=== PATIENT | female | born 1970 | race Caucasian/White ===

== ENCOUNTER 2017-11-22 15:03 | Emergency (ER) | payer BC ==
[~2017-11-22] VITALS: Ht 165.1 cm; Wt 96.9 kg
[2017-11-22 15:13] VITALS: Ht 165.1 cm; Wt 96.9 kg
[2017-11-22] MEDS ORDERED: METHYLPREDNISOLONE 125 MG VIAL IV STA (15:51)
[2017-11-22] MEDS ORDERED: KETOROLAC TROMETHAMINE 30 MG/ML VIAL IV STA (15:51)
[2017-11-22] MEDS ORDERED: SODIUM CHLORIDE 0.9% 1000ML 1,000 ML IV STA (15:51)
[2017-11-22] MEDS ORDERED: ALBUT/IPRATROP 3MG/0.5MG NEB 3 ML VIAL INH STA (15:51)
[2017-11-22] MEDS ORDERED: BENZONATATE 100MG CAP PO ONE (16:00)
[2017-11-22 16:23] LABS: BASO % 0.2 %; BASO ABS # 0.01 K/uL (0-0.2); EOS % 3.7 %; EOS ABS # 0.18 K/uL (0-0.5); HEMATOCRIT 43.1 % (37-47); HEMOGLOBIN 14.6 g/dL (12.0-16.0); IG# 0.01 K/uL (0.00-0.02); LYMPH % 13.9 %; LYMPH ABS # 0.68 K/uL (1.2-3.4); MEAN CELL VOLUME 84.7 fL (80-100); MEAN CORPUSCULAR HEMOGLOBIN 28.7 pg (25-34); MEAN CORPUSCULAR HGB CONC 33.9 g/dl (32-36); MEAN PLATELET VOLUME 9.7 fL (7.4-10.4); MONO % 12.9 %; MONO ABS # 0.63 K/uL (0.11-0.59); NEUT % 69.1 %; NEUT ABS # 3.38 K/uL (1.4-6.5); PLATELET COUNT 147 K/uL (130-400); RED CELL DISTRIBUTION WIDTH CV 13.2 % (11.5-14.5); RED CELL DISTRIBUTION WIDTH SD 41.1 fL (36.4-46.3); WHITE BLOOD COUNT 4.89 K/uL (4.8-10.8)
[2017-11-22] MEDS ORDERED: VNTHFA/IN INH (16:30)
[2017-11-22] MEDS ORDERED: FEXO1TAB49 PO (16:30)
[2017-11-22 16:44] LABS: ALBUMIN 3.5 gm/dl (3.4-5.0); CALCIUM 8.5 mg/dl (8.5-10.1); CREATININE 0.76 mg/dl (0.60-1.20)
[2017-11-22 16:49] LABS: CKMB 2.2 ng/ml (0.5-3.6); TOTAL PROTEIN 6.8 gm/dl (6.4-8.2)
[2017-11-22 17:07] LABS: INFLUENZA B ANTIGEN Neg for Influ B (NEG)
[2017-11-22] MEDS ORDERED: OSELTAMIVIR PHOSPHATE 75 MG CAP PO STA (17:25)
[2017-11-22] MEDS ORDERED: OPTIRAY 320 IV PRN (17:30)
--- NOTE | 2017-11-22 17:30 | DIAGNOSTIC IMAGING REPORT ---
CHEST 2 VIEWS ROUTINE CLINICAL HISTORY: 47 years-old Female presenting with EVALUATE RESPIRATORY DISTRESS.DYSPNEA, cough, congestion, dyspnea, rib pain. TECHNIQUE: PA and lateral views of the chest were obtained. COMPARISON: None. FINDINGS: Cardiomediastinal silhouette normal. Lungs and pleural spaces clear. Osseous structures normal. Upper abdomen normal. IMPRESSION: 1. No acute cardiopulmonary disease. Electronically signed by: Ricardo Angulo M.D. 11/22/2017 5:29 PM Dictated Date/Time: 11/22/2017 5:28 PM
--- NOTE | 2017-11-22 18:45 | DIAGNOSTIC IMAGING REPORT ---
(CHEST FOR PE) ANGIO WITH CT DOSE: 591.65 mGy.cm HISTORY: 47 years-old Female presents with acute atypical chest pain and wheezing TECHNIQUE: Multiple CTA images of the chest were obtained after the intravenous administration of 83 ml Optiray 320. Coronal and sagittal MIPS were obtained from the axial data set and were submitted for review. A dose lowering technique was utilized adhering to the principles of ALARA. COMPARISON: Chest radiographs 11/22/2017. FINDINGS: CTA: Heart is normal in size without pericardial effusion. Thoracic aorta is normal in course and caliber without aneurysm or dissection. Imaged great vessels appear patent. There is limited visualization of the pulmonary arterial tree is very 2 respiratory motion and contrast bolus timing with the main and proximal lobar branches appearing patent. The distal lobar, segmental and subsegmental branches are not well evaluated. No central pulmonary embolus identified. CT CHEST: No dominant thyroid nodule identified. Mildly prominent and mildly enlarged lymph nodes about the chest noted including a prominent 9 mm lymph node interposed between the left subclavian and left common carotid artery. 9 mm precarinal lymph node with 1.3 x 1.8 subcarinal and 1.1 mm right hilar lymph nodes. No axillary adenopathy. No pneumothorax or pleural effusion. Respiratory motion limits evaluation of the lung bases. Mild mosaic attenuation of the left upper lobe suggests some air trapping with atelectasis. Calcific granuloma of the right lung apex. Central airways are patent with mild bilateral bronchial wall thickening. No acute process of the imaged upper abdomen. Soft tissues are unremarkable. Bones appear intact. IMPRESSION: 1. Limited evaluation of the pulmonary arterial tree secondary to contrast bolus timing and respiratory motion. No central pulmonary embolus identified. 2. Mild mediastinal and right hilar adenopathy may be reactive. 3. No lobar airspace consolidation to suggest pneumonia. 4. Mild bilateral bronchial wall thickening suggests bronchitis. The above report was generated using voice recognition software. It may contain grammatical, syntax or spelling errors. Electronically signed by: Jordan Davila M.D. 11/22/2017 6:44 PM Dictated Date/Time: 11/22/2017 6:36 PM
[2017-11-22 18:54] VITALS: TEMP 36.4
[2017-11-22] MEDS ORDERED: BENZ100C18 PO (19:00)
[2017-11-22] MEDS ORDERED: OSEL75CA12 PO (19:00)
[2017-11-22] MEDS ORDERED: PRED20TA2 PO (19:00)
[2017-11-22 19:12] VITALS: BP 126/83; PULSE 80; O2SAT 94
--- NOTE | 2017-11-22 23:26 | EMERGENCY ROOM VISIT NOTE ---
ED Visit Note First contact with patient: 15:27 Chief Complaint: Flulike symptoms. History of Present Illness: Ms. Keene is a 47-year-old white female who ambulates into the ED accompanied by her complaining of sore throat, cough, bilateral rib pain, body aches, fevers. Patient reports her symptoms started 3 days ago. She reports initially they were mild and has gradually increased in intensity. She reports her first symptoms was sore throat. Since that time her discomfort has been constant. She describes her discomfort as a deep achy sensation. She rates her discomfort 9/10. Her pain is nonradiating. Her pain worsens with swallowing. She has not identified any alleviating factors related to the pain. Then on day 2 of her illness she developed body aches, fevers, cough and rib pain. Since that time all the symptoms have been continuous. She reports she has been using Lisette-Lottie sinus medication without relief of her discomfort. Associated with these symptoms she reports she has been having some mild thoracic back pain and a headache with lightheadedness and yesterday she had one episode of watery stools. Additionally through this time she reports she had flown on the plane and felt she might have caught her symptoms there. And reports that she has been having intermittent palpitations and occasional wheezing. She denies skin eruptions, skin color changes, visual changes, hearing changes, difficulty speaking, difficulty swallowing, painful talking, drooling, shortness of breath, previous clots, claudication, cramping, recent surgery/ inactivity, abdominal pain, decreased appetite, nausea, vomiting, neck pain/ stiffness, rectal bleeding, black/tarry stools, urinary symptoms, hematuria. Review of Systems: As noted above in history of present illness. All body systems were reviewed and found to be negative as noted above. Past Medical History: Unspecified skin disease, status post tonsillectomy. Current Medications: Albuterol, Ashley. Allergies to Medications: Patient denies. Social History: Patient is currently employed; she feels safe in her home environment; she denies tobacco use and admits to alcohol use. Physical Examination: Vital Signs: Date Time Temp Pulse Resp B/P (MAP) Pulse Ox O2 Delivery O2 Flow Rate FiO2 11/22/17 19:12 80 20 126/83 94 11/22/17 18:54 36.4 11/22/17 17:02 80 24 123/85 95 Room Air 11/22/17 15:13 37.2 86 18 127/84 98 Room Air GENERAL: 47-year-old female in mild to moderate distress due to symptoms, nontoxic-appearing, febrile and hemodynamically stable. NEUROLOGICAL: Awake, alert and oriented to person, place and time. Answering questions appropriately and following commands. Normal gait. Good hand eye coordination. No focal motor or sensory deficits. SKIN: Warm, dry and pink. No soft tissue eruptions or trauma noted. HEENT: Atraumatic and normocephalic. No erythema or tenderness over the frontal or maxillary sinuses. External ears are nontender. Auditory canals are pink and patent. Tympanic membranes are not erythematous or edematous. No tenderness or erythema over the mastoid processes. PERRLA. Sclera white and conjunctiva pink without drainage. No drainage from naris with mild audible congestion. Airway patent. Uvula is midline and no abscesses were seen. Pharynx is mildly erythematous and edematous. No exudative materials. Speech normal. No lymphadenopathy. Trachea midline. No jugular venous distention. BACK: No tenderness over the bony spine. No nuchal rigidity or meningismus. Full range of motion of the cervical spine. No CVA tenderness. THORAX: Lungs sounds are clear to auscultation but decreased bilaterally primarily in the bases. Equal bilaterally with symmetrical chest wall. No wheezing, rales or rhonchi. No crepitus, tenderness, subcutaneous air or deformities noted. HEART: Regular rate and rhythm. No gallops, rubs or murmurs are appreciated. ABDOMEN: Flat, soft and nontender. Positive bowel sounds in all quadrants. No guarding, rigidity or organomegaly. EXTREMITIES: Moves all extremities well on command and with purpose. All distal neurovascular statuses are intact and equal bilaterally. No calf tenderness or cords. ED Course: Patient is assessed as noted above. Patient's medication list was reviewed. Laboratory Testing: Test 11/22/17 16:10 11/22/17 16:14 11/22/17 16:29 Range/Units White Blood Count 4.89 4.8-10.8 K/uL Red Blood Count 5.09 4.2-5.4 M/uL Hemoglobin 14.6 12.0-16.0 g/dL Hematocrit 43.1 37-47 % Mean Corpuscular Volume 84.7 80-100 fL Mean Corpuscular Hemoglobin 28.7 25-34 pg Mean Corpuscular Hemoglobin Concent 33.9 32-36 g/dl Platelet Count 147 130-400 K/uL Mean Platelet Volume 9.7 7.4-10.4 fL Neutrophils (%) (Auto) 69.1 % Lymphocytes (%) (Auto) 13.9 % Monocytes (%) (Auto) 12.9 % Eosinophils (%) (Auto) 3.7 % Basophils (%) (Auto) 0.2 % Neutrophils # (Auto) 3.38 1.4-6.5 K/uL Lymphocytes # (Auto) 0.68 1.2-3.4 K/uL Monocytes # (Auto) 0.63 0.11-0.59 K/uL Eosinophils # (Auto) 0.18 0-0.5 K/uL Basophils # (Auto) 0.01 0-0.2 K/uL RDW Standard Deviation 41.1 36.4-46.3 fL RDW Coefficient of Variation 13.2 11.5-14.5 % Immature Granulocyte % (Auto) 0.2 % Immature Granulocyte # (Auto) 0.01 0.00-0.02 K/uL Sodium Level 142 136-145 mmol/L Potassium Level 4.0 3.5-5.1 mmol/L Chloride Level 110 98-107 mmol/L Carbon Dioxide Level 28 21-32 mmol/L Anion Gap 4.0 3-11 mmol/L Blood Urea Nitrogen 15 7-18 mg/dl Creatinine 0.76 0.60-1.20 mg/dl Est Creatinine Clear Calc Drug Dose 103.1 ml/min Estimated GFR () 106.8 Estimated GFR (Non- 92.1 BUN/Creatinine Ratio 20.1 10-20 Random Glucose 92 70-99 mg/dl Calcium Level 8.5 8.5-10.1 mg/dl Total Bilirubin 0.2 0.2-1 mg/dl Aspartate Amino Transf (AST/SGOT) 22 15-37 U/L Alanine Aminotransferase (ALT/SGPT) 29 12-78 U/L Alkaline Phosphatase 55 45-117 U/L Total Creatine Kinase 491 26-192 U/L Creatine Kinase MB 2.2 0.5-3.6 ng/ml Creatine Kinase MB Ratio 0.4 0-3.0 Total Protein 6.8 6.4-8.2 gm/dl Albumin 3.5 3.4-5.0 gm/dl Globulin 3.3 2.5-4.0 gm/dl Albumin/Globulin Ratio 1.1 0.9-2 Bedside D-Dimer > 450 0-450 ng/mlFEU Bedside Troponin I < 0.030 0-0.045 ng/ml Urine Color DK YELLOW Urine Appearance CLOUDY CLEAR Urine pH 6.0 4.5-7.5 Urine Specific [place] 1.028 1.000-1.030 Urine Protein 1+ NEG Urine Glucose (UA) NEG NEG Urine Ketones TRACE NEG Urine Occult Blood NEG NEG Urine Nitrite NEG NEG Urine Bilirubin NEG NEG Urine Urobilinogen NEG NEG Urine Leukocyte Esterase NEG NEG Urine WBC (Auto) 1-5 0-5 /hpf Urine RBC (Auto) 0-4 0-4 /hpf Urine Hyaline Casts (Auto) 1-5 0-5 /lpf Urine Epithelial Cells (Auto) >30 0-5 /lpf Urine Bacteria (Auto) NEG NEG Influenza Type A Antigen POS for Influ A NEG Influenza Type B Antigen Neg for Influ B NEG Chest X-Rays: Were read by myself and the radiologist showing no acute infiltrates, effusions or pneumothorax. Normal heart silhouette and bony anatomy. Chest CTA: Was reviewed by myself and read by the radiologist showing a limited evaluation of the pulmonary atrial tree secondary to contrast bolus timing and respiratory movement; no central pulmonary emboli, mild medial Yadiel and right hilar adenopathy, no lobar consolidation, mild bilateral bronchial wall thickening suggesting bronchitis. EKG: Was read by myself and reviewed with Dr. Samuels; shows normal sinus rhythm with a ventricular rate of 85 bpm. Normal axis, intervals and complexes. No acute ST changes indicating ischemia, injury or infarction. No previous EKGs were found for comparison. Patient was hydrated with normal saline and she received 125 mg of Solu-Medrol IV, 30 mg of Toradol IV and 200 mg of Tessalon Perles by mouth and 75 mg of Tamiflu by mouth. Patient was reassessed multiple times during her stay in the emergency department. Patient's case was reviewed with Dr. Samuels; we agreed on diagnostic approach, treatment, disposition and plan. Patient was educated about today's findings and instructed on her treatment plan ; she verbalized understanding and agreement with this plan. Clinical Impression: Influenza A. Bronchitis. Decision-Making: Initially my differential diagnosis I considered pneumonia, influenza, bronchitis, pulmonary embolism, acute coronary syndrome, musculoskeletal disorder and other causes. Disposition: Patient discharged home in stable condition accompanied by her ; prior to departure she was and subjectively reported she was feeling better. She rated her overall body discomfort 6/10. Plan: Patient was encouraged alternate ibuprofen and acetaminophen every 3 hours as needed for fevers and/or body aches. Patient was prescribed 75 mg of Tamiflu 2 times a day for the next 5 days. Patient was prescribed prednisone 60 mg once a day for 5 days. Patient was prescribed Tessalon Perles 100 mg every 8 hours as needed for cough. Patient was prescribed an albuterol inhaler with spacer and encouraged to use 2 puffs every 6 hours for 5 days and as needed for severe coughing episode or shortness of breath. Patient was encouraged to contact her family physician tomorrow and inform them of today's ED visit and request follow-up care and treatment. Patient was encouraged to return to the ED for worsening symptoms, uncontrolled shortness of breath, coughing up blood, uncontrolled fevers or any new/ concerning symptoms.
== END 2017-11-22 19:12 | disposition home or self-care (01) ==
LOC: C.EDB 15:06
DX: J10.1 Influenza due to other identified influenza virus with other respiratory manifestations (principal); J40 Bronchitis, not specified as acute or chronic